=== PATIENT | male | born 1975 | race Caucasian/White ===

== ENCOUNTER 2017-11-26 17:49 | Emergency (ER) | payer OTHER ==
[2017-11-26 18:05] VITALS: BP 133/65; PULSE 82; RESP 18; TEMP 98.4
--- NOTE | 2017-11-26 18:24 | ED ---
Lower Extremity Injury HPI - General Chief Complaint: Extremity Injury, Lower Stated Complaint: [facility] - LEFT KNEE Time Seen by Provider: 11/26/17 18:10 Source: patient Mode of arrival: wheelchair Limitations: no limitations - History of Present Illness Initial Comments: 42-year-old male presents with left lower extremity discomfort after falling off the bed of a truck. He states there is been like objects in the category foot slipped and he fell over the truck bed. Patient states he landed somewhat on his left extremity possibly on the knee Region. Patient states very painful and they are the able to bear weight at this time. Patient states it swelled right away and did use ice no medication has been used. No previous injury no numbness or tingling but patient states it feels like a lot of pressure in that area. Patient denies any head or neck injury no dizziness MD Complaint: knee injury (left), leg injury (left) Worsens With: weight bearing Context: fall Associated Symptoms: swelling, unable to bear weight - Related Data Previous Rx's Medication Instructions Recorded Acetaminophen with Codeine 1 each PO Q4H PRN #15 tab 11/26/17 [Tylenol w/codeine #3] Ibuprofen [Motrin] 800 mg PO Q8HR PRN #30 tab 11/26/17 Allergies Allergy/AdvReac Type Severity Reaction Status Date / Time No Known Allergies Allergy Verified 11/26/17 18:03 Review of Systems ROS Statement: Those systems with pertinent positive or pertinent negative responses have been documented in the HPI. ROS Other: All systems not noted in ROS Statement are negative. Gastrointestinal: Denies: nausea Musculoskeletal: Reports: other (left lower extremity pain and swelling) Skin: Denies: rash Neurological: Reports: abnormal gait. 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 Absent: scleral icterus, conjunctival injection, periorbital swelling Neck exam: Present: normal inspection. Absent: tenderness, meningismus, lymphadenopathy Respiratory exam: Present: normal lung sounds bilaterally. Absent: respiratory distress, wheezes, rales, rhonchi, stridor Cardiovascular Exam: Present: regular rate, normal rhythm, normal heart sounds. Absent: systolic murmur, diastolic murmur, rubs, gallop, clicks Left Hip exam: Present: normal inspection, full ROM. Absent: tenderness, swelling Upper Leg exam: Present: normal inspection, full ROM. Absent: tenderness, swelling Knee exam: Present: tenderness, swelling. Absent: full ROM Lower Leg exam: Present: tenderness, swelling. Absent: full ROM Ankle exam: Present: normal inspection, full ROM. Absent: tenderness, swelling Foot/Toe exam: Present: normal inspection, full ROM. Absent: tenderness, swelling Course Vital Signs 11/26/17 18:03 Temperature 98.4 F Pulse Rate 82 Respiratory 18 Rate Blood Pressure 133/65 O2 Sat by Pulse 98 Oximetry Medical Decision Making - Medical Decision Making Reviewed x-ray which showed tibial plateau fracture patient aware opening knee immobilizer and send orthopedic for evaluation. Patient will use crutches at home and nonweightbearing status. Patient given pain medication for pain and swelling. Patient to follow-up closely with orthopedic on Tuesday as soon as possible return to ER symptoms progress or worsen such as increased pain swelling Disposition Clinical Impression: Tibial plateau fracture, left Disposition: HOME SELF-CARE Condition: Good Instructions: Leg Fracture (ED) Prescriptions: Acetaminophen with Codeine [Tylenol w/codeine #3] 1 each PO Q4H PRN #15 tab PRN Reason: Pain Ibuprofen [Motrin] 800 mg PO Q8HR PRN #30 tab PRN Reason: Pain Is patient prescribed a controlled substance at d/c from ED?: Yes When asked, does pt state using other controlled substances?: No If prescribed controlled substance>3 days was MAPS reviewed?: Prescribed <3 Days If opioid is for acute pain is fill amount 7 days or less?: Yes If Rx opioid, was Start Talking consent form obtained?: Yes Referrals: Solomon Chaudhry MD [Primary Care Provider] - 1-2 days Nolan Greene MD [STAFF PHYSICIAN] - 1-2 days Time of Disposition: 19:14
--- NOTE | 2017-11-26 18:57 | XR ---
EXAMINATION TYPE: XR femur LT, XR tibia fibula LT, XR knee 4V LT DATE OF EXAM: 11/26/2017 CLINICAL HISTORY: Fall injury with pain TECHNIQUE: Two views of the left leg and femur are obtained. 4 views of left knee are acquired. COMPARISON: None FINDINGS: There is no acute fracture or dislocation seen in the left femur. The visualized left hip joint appears within normal limits. The overlying soft tissue appears unremarkable. Images of left knee show acute comminuted intra-articular nondisplaced fracture through the lateral t ibial plateau with associated large suprapatellar joint effusion. There is inferior extension to invo lve the proximal metadiaphysis seen best on the oblique projection. Images of the left leg show no additional acute fracture or dislocation distally. Visualized left ank le joint appears within normal limits. IMPRESSION: There is acute comminuted intra-articular fracture of the lateral proximal tibial meta-e piphysis involving the tibial plateau. Orthopedic referral advised. (Initial encounter closed type post traumatic fracture)
== END 2017-11-26 19:41 | disposition home or self-care (01) ==
LOC: EC 17:49
DX: S82.142A Displaced bicondylar fracture of left tibia, initial encounter for closed fracture (principal); V68.9XXA Unspecified occupant of heavy transport vehicle injured in noncollision transport accident in traffic accident, initial encounter
CPT/HCPCS: 73552; 73590; 73564; 99283; L1830